=== PATIENT | female | born 1980 ===

== ENCOUNTER 2016-12-27 05:12 | Inpatient (IN) | payer OTHER ==
[2016-12-27 06:02] VITALS: BMI 29.0
[2016-12-27] MEDS ORDERED: ceFAZolin 2 GM in Sodium Chloride 0.9% 100 ML IVPB ONE (06:02)
[2016-12-27 06:10] VITALS: BP 119/85; PULSE 90; RESP 18; TEMP 97.8; O2SAT 97
[2016-12-27] MEDS ORDERED: Oxytocin 30 units/LR 500ML 500 ML IV ONE (06:17)
[2016-12-27 06:19] LABS: BASO % 0.5 % (0.0-2.0); EOS # 0.1 K/uL (0.0-0.7); EOS % 1.1 % (0.0-4.0); HEMATOCRIT 42.5 % (34.0-47.0); LYMPH # 1.4 K/uL (1.0-4.3); LYMPH % 20.3 % (20.0-40.0); MEAN CELL VOLUME 87.6 fl (81.0-99.0); MEAN CORPUSCULAR HEMOGLOBIN 29.4 pg (27.0-31.0); MEAN CORPUSCULAR HGB CONC 33.6 g/dL (33.0-37.0); MEAN PLATELET VOLUME 8.7 fl (7.2-11.7); MONO # 0.7 K/uL (0.0-0.8); MONO % 10.4 % (0.0-10.0); NEUT # 4.5 K/uL (1.8-7.0); NEUT % 67.7 % (50.0-75.0); NRBC % 0.1 % (0.0-0.0); RED CELL DISTRIBUTION WIDTH 17.1 % (11.5-14.5); WHITE BLOOD COUNT 6.7 K/uL (4.8-10.8)
[2016-12-27] MEDS ORDERED: Oxytocin 30 units/LR 500ML 500 ML IV SCH (06:30)
[2016-12-27] MEDS: Lactated Ringer's 1,000 ML IV SCH ×3 (06:30→08:55)
[2016-12-27] MEDS ORDERED: ePHEDrine 50 mg/ml Inj ONE (06:40)
[2016-12-27] MEDS ORDERED: Phenylephrine 10 mg/ml Inj ONE (06:40)
[2016-12-27] MEDS ORDERED: Morphine 1 mg/ml preservative-free Inj(Duramorph) ONE ×2 (06:40→07:20)
--- NOTE | 2016-12-27 07:26 | OBHP ---
Datetime: 12/27/2016 06:08 IP Adm Impression: Term, intrauterine IP Admit Plan: Admit to unit; Initiate Section protocol Admit Comment, IP Provider: 36yr at 39w1d GA presents to [facility] with previous cesearen section, c omplaing of pain, conrction like over past 2 days increasing intesntiy and freueyc. . Denies vaginal bleeding, LOF. + movement. Routine care with Dr. Hale. Patient has no other concerns or complaints at this time. care/course: GBS +, RPR neg, HepBsAg neg, HIV neg, Rubella IgG positive, Growth Sca n 11/30/16: BPP 8/8, cephalic, placenta anterior OBHx: Primary at full term for arrest of descent/macrosomia in 2011 PMHx: none SurgHx: none Meds: PNV Allergies: NKDA SocHx: denies smoking, Etoh, drugs PE: VSS, patient in no acute distress Cardiac: S1 S2 normal, no murmurs,rubs, gallops Lungs: CTABL Abd: gravid, nontender Ext: no edema Monitoring: FHR 130 bpm, moderate variability 6-25bpm, accelerations 15x15, no decels A: IUP at 39w1d for scheduled repeat P: -Admit to labor and delivery -IV insertion, CBC, Type and screen -IVF -Anesthesia consult -Continuous monitoring Bruna Yousif M.D. PGY1 Pelvic Type - PN: Adequate Extremities - PN: Normal Abdomen - PN: Normal Back - PN: Normal Lungs - PN: Normal Heart - PN: Normal Thyroid - PN: Normal Neurologic - PN: Normal HEENT - PN: Normal General - PN: Normal Presentation-Admit: Vertex FHR - Baseline A Provider: 130 Membranes, Provider: Intact Gestation - Est Wks by US: 39.1 IP Hx Assessment: The History has been Reviewed and is Current Vital Signs Provider: Reviewed IP Chief Complaint: Uterine contractions NICHD Variability Prov Fetus A: Moderate 6-25bpm NICHD Accel Fetus A IP Provider: 15X15 FHR Category Provider Fetus A: Category I NICHD Decel Fetus A IP Provider: None Dilatation, Provider: 3-4 Effacement, Provider: 70 Station, Provider: -2 Genitourinary Exam: Normal DTRs - PN: Normal
[2016-12-27] MEDS ORDERED: Bisacodyl 5mg EC Tab PO PRN ×2 (07:37→12:20)
[2016-12-27] MEDS ORDERED: Oxycodone/Acetaminophen 5/325 mg Tab PO PRN ×3 (07:37→12:20)
[2016-12-27] MEDS ORDERED: DiphenhydrAMINE 50 mg/ml Inj IVP PRN ×2 (08:30→12:20)
--- NOTE | 2016-12-27 08:47 | OBDS ---
DELIVERY PERSONNEL Delivery Doctor: Reji Hale MD Scrub Nurse: Danisha Goodrich Sales Support Advisor: Clemente Francisco RN MATERNAL INFORMATION Medications in Delivery: Hemabate 250mcg IM, pitocin 30u/500LR Provider Comments: live female infant compiund presenation left hadn, apgars 9,9 weight of 7lbs 4 ou nces normal uterus, tubes and ovaries bilaterlaly ebl 700 ml no complications pediatricina presnet for delivery LABOR SUMMARY EDC: 01/02/2017 00:00 No. Babies in Womb: 1 Attempted: No Labor Anesthesia: Intrathecal LABOR INFORMATION Steroids Given: None Reason Steroids Not Administered: Not Applicable MEMBRANES Membranes Rupture Method: Spontaneous Rupture of Membranes: 12/27/2016 08:06 Length of Rupture (hrs): 0.00 Amniotic Fluid Color: Clear Amniotic Fluid Amount: Moderate Amniotic Fluid Odor: Normal STAGES OF LABOR Stage 3 hrs: 0 Stage 3 min: 1 CSECTION DELIVERY Primary Indication: Repeat Elective CSection Urgency: Elective CSection Incidence: Repeat Labor: N/A Elective: Elective CSection Incision: Lower Uterine Transverse BABY A INFORMATION Delivery Date/Time: 12/27/2016 08:06 Method of Delivery: Born in Route : No : N/A Forceps: N/A Vacuum Extraction: N/A Shoulder Dystocia : No SHOULDER DYSTOCIA BABY A Delivery Date/Time: 12/27/2016 08:06 PRESENTATION/POSITION BABY A Presentation: Cephalic PLACENTA INFORMATION BABY A Placenta Delivery Time : 12/27/2016 08:07 Placenta Method of Delivery: Manual Removal Placenta Status: Delivered SCORES BABY A Heart Rate 1 min: >100 bpm Resp Effort 1 min: Good Cry Reflex Irritability 1 min: Cough or Sneeze or Pulls Away Muscle Tone 1 min: Active Motion Color 1 min: Body [place], Extremities Blue SCORE 1 MIN: 9 Heart Rate 5 min: >100 bpm Resp Effort 5 min: Good Cry Reflex Irritability 5 min: Cough or Sneeze or Pulls Away Muscle Tone 5 min: Active Motion Color 5 min: Body [place], Extremities Blue SCORE 5 MIN: 9 INFANT INFORMATION BABY A Gestational Age at Delivery: 39.0 Gestational Status: Term Infant Outcome : Liveborn Infant Condition : Stable Sex: Female WEIGHT/LENGTH BABY A Birthweight (gms): 3290 Weight (lb): 7 Weight (oz): 4 CORD INFORMATION BABY A No. Cord Vessels: 3 Nuchal Cord : N/A Cord Blood Taken: Yes Suction: Mouth ASSESSMENT BABY A Infant Complications: None Infant Complications Other: none Physical Findings at Delivery: Within Normal Limits Respirations: Appears Normal Levers Lace Machine Operator/ALS Called : Yes Care By: Transferred To: [facility]
[2016-12-27] MEDS ORDERED: Multivitamin With Minerals Tab PO SCH (09:00)
--- NOTE | 2016-12-27 13:26 | PCM.SURG1 ---
Surgeon's Initial Post Op Note - Surgeon's Notes Surgeon: Elsa Hale MD Plant Operations Vice President: Yayo Guzman MD Type of Anesthesia: Spinal Pre-Operative Diagnosis: Previous Cesearen section celena in labor, for repeat cesearen section Operative Findings: live femlae compoudn presentation left hand, ramon, no nuchal cord, apgars 99, weight of 7lbs 4 ounces, normal uterus, tubes and ovaries bilaterally. Kurt Guzman was customer marketing assistant and was present for entire care and essential in gaining entry, retraction, expsoure, holding bladder blade, deliverying the infant, closing all the layers, obtainign hemostaisis. Post-Operative Diagnosis: same as above Operation Performed: Repeat Low Transverse Cesearean section Specimen/Specimens Removed: placenta Estimated Blood Loss: EBL {In ML}: 700 Blood Products Given: N/A Drains Used: No Drains Post-Op Condition: Good Date of Surgery/Procedure: 12/27/16 Time of Surgery/Procedure: 08:00
--- NOTE | 2016-12-27 14:38 | OP ---
PROCEDURE DATE: 12/27/2016 SURGEON: Dr. Elsa Hale. ASSET PROTECTION LEAD: Dr. Yayo Guzman. TYPE OF ANESTHESIA: Spinal. PREOPERATIVE DIAGNOSES: Previous section, celena, in labor, for repeat sectio n. POSTOPERATIVE DIAGNOSES: Previous section, celena, in labor, for repeat secti on. OPERATIVE FINDINGS: Live female in compound presentation, left hand CASSIE. No nuchal cord. Ap gars 9 and 9. Weight 7 pounds 4 ounces. Normal uterus, tubes, and ovaries bilaterally. Dr. Yayo Guzman was the surgical technology instructor and was present for the entire case and was essential in g aining entry, retraction, exposure, holding the bladder blade, delivering the and closing all the layers, and obtaining hemostasis. OPERATION PERFORMED: Repeat low transverse section. SPECIMEN: Placenta. ESTIMATED BLOOD LOSS: 700 mL. BLOOD PRODUCTS: None. COMPLICATIONS: None. CONDITION: Stable. DESCRIPTION OF PROCEDURE: The patient was taken to the operating where she was given spinal anesthes ia. Once this was found to be adequate, the patient was placed on the operating table in the dorsal supine position. The patient was prepped and draped in the usual sterile fashion. A red catheter wa s inserted into the urethra to drain the bladder. The patient was prepped and draped in the usual st erile fashion. The patient was given preoperative prophylactic antibiotics. Pfannenstiel skin incis ion was made with the scalpel and carried down to underlying fascia with the Bovie. The fascia was i ncised in the midline. Incision was extended laterally with Bovie. Superior aspect of the fascial i ncision was grasped, elevated with Tammie clamps and the underlying rectus muscles were dissected off bluntly with the use of the Bovie. Attention was turned to the inferior aspect of this incision whi ch in similar fashion was grasped with Tammie clamps, and the underlying rectus muscles were dissecte d off bluntly with the use of the Bovie. Rectus muscles were bluntly in the midline. The peritoneum identified. In a clear space entered bluntly ____ good visualization of the bladder. Low er end of the Bandar was then inserted. The lower uterine segment was incised in a transverse fashi on. The uterine incision was extended laterally bluntly. The surgeon's hand entered the uterine cav ity with clear amniotic fluid noted. The 's head was delivered atraumatically, compound presen tation, followed by delivery of the shoulders followed by delivery of the body. Both oral and nasal passages of the baby were bulb suctioned. Umbilical cord was clamped and cut and baby was handed off to the waiting spanish interpreter/translator. Cord blood and cord gas was collected x 2. The placenta was then deli rosa manually. The uterus exteriorized, cleared of all clots and debris. The uterus was repaired w ith 0 Vicryl in running continuous locked fashion; second layer of the same suture was used to close uterus in a running imbricated manner. There was good hemostasis at the uterine incision site. Norm al tubes and ovaries. The uterus was then returned to the abdomen and pericolic gutters were cleared of all clots and debris. There was good hemostasis noted at the uterine incision site. The periton eum was reapproximated with 2-0 chromic in a running continuous fashion, the rectus reapproximated an d closed with 2-0 chromic in interrupted manner, and the skin was reapproximated and closed with 4-0 Biosyn on a Oren needle in a running subcuticular fashion. The abdomen was then prepped and cleaned , and Steri-Strips were applied to the dressing with a pressure dressing. At the end of the procedur e, all needle, sponge and instrument counts were correct x 2. The patient tolerated the procedure we ll and transferred to recovery room in stable condition. Elsa Hale MD cc: [id number] TT: 12/27/2016 14:37:30 nh
[2016-12-27] MEDS ORDERED: ceFAZolin 1 GM in Sodium Chloride 0.9% 100 ML IVPB SCH (16:00)
[2016-12-28 06:48] LABS: HEMATOCRIT 31.9 % (34.0-47.0); MEAN CELL VOLUME 88.4 fl (81.0-99.0); MEAN CORPUSCULAR HEMOGLOBIN 30.3 pg (27.0-31.0); MEAN CORPUSCULAR HGB CONC 34.2 g/dL (33.0-37.0); RED CELL DISTRIBUTION WIDTH 16.7 % (11.5-14.5); WHITE BLOOD COUNT 12.5 K/uL (4.8-10.8)
[2016-12-28 06:56] LABS: BLOOD UREA NITROGEN 7 mg/dl (7-17); CALCIUM 8.1 mg/dL (8.4-10.2); CARBON DIOXIDE 24 mmol/L (22-30); CHLORIDE 104 mmol/L (98-107); GFR AFRICAN-AMERICAN > 60; GLUCOSE,RANDOM 76 mg/dL (65-105); POTASSIUM 3.8 MMOL/L (3.6-5.0); SODIUM 137 mmol/l (132-148)
[2016-12-28] MEDS: Oxycodone/Acetaminophen 5/325 mg Tab PO PRN ×2 (08:37→21:13)
[2016-12-28] MEDS: Multivitamin With Minerals Tab PO SCH (08:38)
--- NOTE | 2016-12-28 10:02 | OBPPN ---
Datetime: 12/28/2016 10:00 PP Pain Prov: Within normal limits PP Nausea Prov: Denies PP Flatus Prov: No PP BM Prov: No PP Breasts Prov: Normal PP Heart Prov: Normal PP Lungs Prov: Normal PP Abdomen/Uterus Prov: Normal PP Lochia Prov: Normal PP Vulva/Perineum Prov: Normal PP CVA Tenderness Prov: Normal PP Extremities Prov: Normal PP C/S Incision Prov: Normal PP Progress Prov: Normal PP Comments Phys Exam Prov: Breast: non engorged b/l, non tender Abd; Soft, Ntg/ND +BS, no guarding, no reboudn tendneress, no rigity Fundus: firm, below level of umbicius VE: minomal lochai, non foul semlling EXT: no calf tendernss b/l, negative homans sigbn PP Impression Prov: Normal progression PP Plan Prov: Continue present management PP Progress Note Prov: pt seen and examined, reports last vomiiting yesterday evening, reports feeli ng better, tolerating diet. Pt is hungry. pt ambuaitng, voidign, no flatus, breast feedign and report s pain [email or web address] Pt was non bloody non billious, no fevers, chills, lightheadnss, dizzyness, CP, SOB VS see above PE see above A/P s/p RLTCS POD #1 doing well -f/u repeat CBC -pain managent -advance diet -encoaurge ambuatin, incentive spirometer -cont current magnaent -encoaurge breast feeding IP PP Procedures: None Vital Signs Provider PP: Reviewed
[2016-12-28 11:27] LABS: BASO # 0.1 K/uL (0.0-0.2); BASO % 0.4 % (0.0-2.0); EOS % 0.1 % (0.0-4.0); HEMATOCRIT 34.2 % (34.0-47.0); LYMPH # 1.1 K/uL (1.0-4.3); LYMPH % 8.3 % (20.0-40.0); MEAN CELL VOLUME 87.6 fl (81.0-99.0); MEAN CORPUSCULAR HGB CONC 34.3 g/dL (33.0-37.0); MONO # 0.7 K/uL (0.0-0.8); MONO % 5.6 % (0.0-10.0); NEUT % 85.6 % (50.0-75.0); NRBC % 0.1 % (0.0-0.0); PLATELET COUNT 186 K/uL (130-400); RED CELL DISTRIBUTION WIDTH 17.3 % (11.5-14.5); WHITE BLOOD COUNT 12.8 K/uL (4.8-10.8)
[2016-12-28 12:59] LABS: NEUTROPHIL 93 % (42-75); TOTAL CELLS COUNTED 100
[2016-12-29] MEDS: Multivitamin With Minerals Tab PO SCH (09:16)
[2016-12-30] MEDS: Multivitamin With Minerals Tab PO SCH (08:13)
--- NOTE | 2016-12-30 09:03 | CP.PCM.PN ---
Subjective - Date & Time of Evaluation Date of Evaluation: 12/29/16 Time of Evaluation: 09:00 - Subjective Subjective: pt reporint pain over incsion, urinating, no flatus, minial vagnal bleeding, breast feedng Objective - Vital Signs/Intake and Output Vital Signs (last 24 hours): Temp Pulse Resp BP Pulse Ox 97.8 F 90 18 119/85 97 12/27/16 06:03 12/27/16 06:03 12/27/16 06:03 12/27/16 06:03 12/27/16 06:03 - Medications Medications: Current Medications Bisacodyl (Dulcolax) 10 mg PO DAILY PRN PRN Reason: Constipation Diphenhydramine HCl (Benadryl) 50 mg IVP Q6 PRN PRN Reason: Itching / Pruritus Docusate Sodium (Colace) 100 mg PO BID [facility] Last Admin: 12/30/16 08:13 Dose: 100 mg Ibuprofen (Motrin Tab) 600 mg PO Q4H PRN PRN Reason: Pain, Mild (1-3) Last Admin: 12/30/16 08:13 Dose: 600 mg Metoclopramide HCl (Reglan) 10 mg IVP Q6 PRN PRN Reason: Nausea/Vomiting Last Admin: 12/27/16 12:48 Dose: 10 mg Multivitamins/Minerals (Therapeutic-M Tab) 1 tab PO DAILY [facility] Last Admin: 12/30/16 08:13 Dose: 1 tab Ondansetron HCl (Zofran Inj) 4 mg IVP ONCE PRN PRN Reason: Nausea/Vomiting Ondansetron HCl (Zofran Inj) 4 mg IVP Q6 PRN PRN Reason: Nausea/Vomiting Sennosides (Senokot Tab) 17.2 mg PO HS [facility] Last Admin: 12/29/16 22:05 Dose: Not Given Zolpidem Tartrate (Ambien) 5 mg PO HS PRN PRN Reason: Insomnia - Labs Labs: 12/28/16 11:08 12/28/16 04:45 - Head Exam Head Exam: ATRAUMATIC, NORMAL INSPECTION - Eye Exam Eye Exam: EOMI, Normal appearance Pupil Exam: NORMAL ACCOMODATION - ENT Exam ENT Exam: Mucous Membranes Moist - Neck Exam Neck Exam: Normal Inspection - Respiratory Exam Respiratory Exam: Accessory Muscle Use, NORMAL BREATHING PATTERN - Cardiovascular Exam Cardiovascular Exam: REGULAR RHYTHM, +S1, +S2 - GI/Abdominal Exam GI & Abdominal Exam: Soft Additional comments: TTP over right side of incsin, no guaridng,no rebound tenenree, no rigidyt no uterine tenderness Fundus; firm below leve of umbiicus minimal lochia, non ul smelling incsion c/d/i - Extremities Exam Extremities Exam: Normal Inspection Assessment and Plan (1) delivery delivered Assessment & Plan: 1. Pain Mangmaent: Peroceot / MOtirn, if needed Toradol IVP x 1 2. Regular diet 3. Bowel regimen 4. Ambuationg, incentive spiromer 5. encouarge Status: Acute
--- NOTE | 2016-12-31 10:29 | OBPPN ---
Datetime: 12/31/2016 10:26 PP Pain Prov: Within normal limits PP Nausea Prov: Denies PP Flatus Prov: Yes PP BM Prov: Yes PP Breasts Prov: Normal PP Heart Prov: Normal PP Lungs Prov: Normal PP Abdomen/Uterus Prov: Normal PP Lochia Prov: Normal PP Vulva/Perineum Prov: Normal PP CVA Tenderness Prov: Normal PP Extremities Prov: Normal PP C/S Incision Prov: Normal PP Progress Prov: Normal PP Comments Phys Exam Prov: incsion C/D/I PP Impression Prov: Normal progression PP Plan Prov: Continue present management PP Progress Note Prov: Delayed Entry: pt seen and examined no complaints VSS PE see above A/P s/p RLTCS POD #3 doing well, stable for discharge -d/c home -RTO 1 week for incison check -precations givne Vital Signs Provider PP: Reviewed; Within Normal Limits
--- NOTE | 2016-12-31 10:29 | OBDCSUM ---
Datetime: 12/30/2016 20:13 Discharge Instructions, Provider: Routine instructions given Discharge Diagnosis, Provider: Term Delivered Contraception discussed, Prov: Yes Disch Activity Restrictions: No exercising; Minimize stair-climbing; No sexual activity; Nothing in vagina - [place], tampons, douche Discharge Comment, Provider: precautions given Contraception after Delivery: Not Planning to Use
== END 2016-12-30 20:55 | disposition home or self-care (01) | DRG 766 ==
LOC: H.EROB2 05:12 → H.L&D 05:36 → H.OB/GYN 15:19
PROVIDERS: ADMIT Obstetrics & Gynecology; ATTEND Obstetrics & Gynecology
PROC: 10D00Z1 Extraction of Products of Conception, Low, Open Approach (ICD-10-PCS; principal; 2016-12-27)
PROC: 4A1HXCZ Monitoring of Products of Conception, Cardiac Rate, External Approach (ICD-10-PCS; 2016-12-27)
DX: O34.211 Maternal care for low transverse scar from previous cesarean delivery (principal); N85.8 Other specified noninflammatory disorders of uterus; Z3A.39 39 weeks gestation of pregnancy; Z37.0 Single live birth; O32.6XX0 Maternal care for compound presentation, not applicable or unspecified; O99.824 Streptococcus B carrier state complicating childbirth